=== PATIENT | female | born 1945 | race Caucasian/White ===

== ENCOUNTER 2018-03-02 17:44 | Emergency (ER) | payer MEDICARE, OTHER ==
[2018-03-02] MEDS ORDERED: BACIGUENT PACKET ONE (18:03)
--- NOTE | 2018-03-02 18:05 | ERPHSYRPT ---
- History of Present Illness Time Seen by Provider: 03/02/18 17:50 Source: patient Exam Limitations: no limitations Patient Subjective Stated Complaint: Pt states she cut her finger 2 days ago while cooking supper and it hasn't quit bleeding. HX diabetes and wanted it looked at. Triage Nursing Assessment: bandaids removed. laceration noted to middle finger on left hand. no active bleeding noted. Physician History: Pt states, she accidentally cut her left middle finger 2 days ago, covered with band aide. She noticed bleeding for a long time, she became concerned. She denies any pain, throbbing, no fever, chills, other complaints, she is diabetic , her blood sugar was 202 this morning. She states, she was given DPT immunization 3 years ago. Occurred: days ago (2) Method of Injury: incised Quality: burning Severity of Pain-Max: mild Severity of Pain-Current: none Extremities Pain Location: 3rd finger: left Modifying Factors: Improves With: nothing Associated Symptoms: none Allergies/Adverse Reactions: SILK TAPE Allergy (Uncoded 09/02/12 02:46) Home Medications: Allopurinol 300 mg [Zyloprim 300 mg] 300 mg PO 09/02/12 [History] Aspirin 81 DAILY 09/02/12 [History] Ca Cmb No.1/Vit D3/B-6/FA/B12 [Vitamin D3 1,000 Unit Tablet] 2,000 09/02/12 [ History] Glipizide Xl 5 mg DAILY 09/02/12 [History] Hydrochlorothiazide 25 mg DAILY 09/02/12 [History] Loratadine DAILY 09/02/12 [History] Metformin HCl Xr 500 mg [Glucophage XR 500 MG] BID 09/02/12 [History] Metoprolol Succinate 50 mg [Toprol Xl 50 MG] DAILY 09/02/12 [History] Multivitamin [Multi-Vitamin Daily] 09/02/12 [History] Quinapril HCl 20 mg PO DAILY 09/02/12 [History] Stool Softener BID 09/02/12 [History] Hx Tetanus, Diphtheria Vaccination/Date Given: Yes (2014) Hx Influenza Vaccination/Date Given: No Hx Pneumococcal Vaccination/Date Given: No Immunizations Up to Date: Yes - Review of Systems Constitutional: No Symptoms Skin: Other (laceration left middle finger) All Other Systems: Reviewed and Negative - Past Medical History Pertinent Past Medical History: Yes Neurological History: No Pertinent History ENT History: No Pertinent History Cardiac History: Hypertension Respiratory History: No Pertinent History Endocrine Medical History: Diabetes Type II Musculoskeletal History: Arthritis, Osteoporosis GI Medical History: No Pertinent History History: No Pertinent History Psycho-Social History: No Pertinent History Female Reproductive Disorders: No Pertinent History - Past Surgical History Past Surgical History: Yes Neuro Surgical History: No Pertinent History Cardiac: No Pertinent History Respiratory: No Pertinent History Gastrointestinal: Cholecystectomy Musculoskeletal: Orthopedic Surgery Female Surgical History: Hysterectomy Other Surgical History: BILAT KNEE REPLACEMENT RIGHT FOOT SURGERY - Social History Smoking Status: Never smoker Exposure to second hand smoke: No Drug Use: none Patient Lives Alone: No - Female History Hx Now: No - Nursing Vital Signs Nursing Vital Signs: Pain Scale Pain Intensity 0 - Physical Exam General Appearance: no apparent distress Hand Exam: laceration (1.5 cm old laceration to the volar surface of the 3rd finger end phalanx, healing properly, no redness, bleeding, drainage, normal capillary refills.) Neuro/Tendon Exam: normal sensation, normal motor functions Mental Status Exam: alert, oriented x 3 Skin Exam: normal color, warm, dry SpO2 Interpretation: normal Oxygen Delivery: Room Air - Course Nursing assessment & vital signs reviewed: Yes Ordered Tests: Active Orders 24 hr Category Date Time Status Accucheck STAT Care 03/02/18 17:58 Active Wound Care STAT Care 03/02/18 17:58 Active - Progress Progress: unchanged Progress Note: 03/02/18 18:04 Wound cleaned with saline, antibiotic ointment placed and band aide, advised to return if severe pain, redness, discharge or fever> 101 F. - Departure Time of Disposition: 18:04 Departure Disposition: Home Clinical Impression: Laceration of finger Qualifiers: Encounter type: initial encounter Finger: middle finger Damage to nail status: without damage Foreign body presence: without foreign body Laterality: left Qualified Code(s): S61.213A - Laceration without foreign body of left middle finger without damage to nail, initial encounter Condition: Stable Critical Care Time: No Referrals: FLORENTINO FIGUEROA [Primary Care Provider] - Instructions: Wound Care (DC) Additional Instructions: Return if severe pain, redness, discharge or fever> 101 F!
[2018-03-02] MEDS ORDERED: BACIGUENT PACKET TP ONE (18:06)
[2018-03-02 18:23] VITALS: BP 166/88; PULSE 88; O2SAT 99
== END 2018-03-02 18:23 | disposition home or self-care (01) ==
LOC: ED 17:44
DX: S61.213A Laceration without foreign body of left middle finger without damage to nail, initial encounter (principal); W26.0XXA Contact with knife, initial encounter; Y93.G3 Activity, cooking and baking; Y92.000 Kitchen of unspecified non-institutional (private) residence as the place of occurrence of the external cause; Z79.899 Other long term (current) drug therapy
CPT/HCPCS: 82962; 99283; A9270-GY